=== PATIENT | female | born 1970 | race Caucasian/White ===

== ENCOUNTER 2018-05-26 22:15 | Emergency (ER) | payer SELFPAY ==
[~2018-05-26] VITALS: Ht 154.9 cm; Wt 77.1 kg
[2018-05-26 22:20] VITALS: BP 151/84
--- NOTE | 2018-05-26 23:00 | NUR ---
BIBA TO BED 6
--- NOTE | 2018-05-26 23:00 | NUR ---
47/F BIBA FOR L LOWER BACK PAIN. PT REPORTS SUDDEN ONSET 10/10 L LOWER BACK PAIN, RADIATING TO LLE WITH NUMBNESS/PARESTHESIA, S/P JUMPING IN A [employer] CLASS TODAY. PT REPORTS STARTING TO FEEL LOWER BACK PAIN/DISCOMFORT 3 DAYS AGO WHILE TRAVELING FROM [place]. NO OBVIOUS ABNORMALITY, REDNESS OR SWELLING NOTED ON BACK/LLE. DENIES FEVER/CHILLS, N/V/D, DYSURIA. AOX4, GCS 15, MILD RESTLESS, AMBULATORY WITH SLIGHT LIMP, RR EVEN AND UNLABORED. DENIES MED HX OR RX. OTC PAIN MEDICATION WITH LITTLE RELIEF.
[2018-05-26] MEDS ORDERED: KETOROLAC 60 MG/2 ML VIAL IM ONE (23:40)
[2018-05-27] MEDS ORDERED: MORPHINE SULFATE 4 MG/ML SYR IM ONE (00:30)
--- NOTE | 2018-05-27 00:44 | NUR ---
PT C/O 10/10 L LOWER BACK PAIN DESPITE TORADOL IM. PT LAYING SUPINE, MILDLY RESTLESS AND MOANING IN PAIN. DR DAVIS MADE AWARE. ADMINISTERED MORPHINE IM WITH EDUCATION, PT VERBALIZED UNDERSTANDING, TOLERATED MED WELL.
[2018-05-27] MEDS ORDERED: HYDROmorphone PFS 2 MG/ML SYR IVP ONE (01:45)
[2018-05-27 01:55] LABS: APPEARANCE,URINE CLOUDY (CLEAR); BILIRUBIN,URINE NEGATIVE (NEGATIVE); BLOOD, URINE TRACE-L (NEGATIVE); COLOR,URINE YELLOW (YELLOW); LEUKOCYTE ESTERASE ,URINE NEGATIVE (NEGATIVE); NITRITE, URINE NEGATIVE (NEGATIVE); PH,URINE 8.5 (5.0-9.0); UGLUCOSE NEGATIVE (NEGATIVE)
--- NOTE | 2018-05-27 02:01 | NUR ---
PT C/O PERSISTENT 10/10 L LOWER BACK PAIN DESPITE MORPHINE IM. PT REMAINS MILDLY RESTLESS AND MOANING IN PAIN. DR DAVIS MADE AWARE. ADMINISTERED DILAUDID 1MG IVP WITH EDUCATION, PT VERBALIZED UNDERSTANDING, TOLERATED MED WELL.
[2018-05-27 02:10] LABS: RBC,URINE 0-5 /HPF (0-5); WBC,URINE 0-5 /HPF (0-5)
--- NOTE | 2018-05-27 03:05 | NUR ---
PT SLEEPING IN BED, AROUSABLE TO NAME, REPORTS RELIEF IN L LUMBAR PAIN, 3/10 AT THIS TIME. VSS, RR EVEN AND UNLABORED. ALL NEEDS MET AT THIS TIME.
--- NOTE | 2018-05-27 05:27 | NUR ---
PT LAYING IN BED, RR EVEN AND UNLABORED. VSS. REPORTS L LOWER BACK PAIN INCREASING AGAIN 5/10 AT THIS TIME. REQUESTING FOR XRAY. ER MD MADE AWARE. VERBAL ORDER FOR LUMBAR XR COMPLETE.
--- NOTE | 2018-05-27 05:38 | NUR ---
PT TO XRAY VIA W/C IN STABLE CONDITION
[2018-05-27 06:14] VITALS: BP 167/87
== END 2018-05-27 06:14 | disposition home or self-care (01) ==
LOC: MED 22:15
DX: M54.5 Low back pain (principal); M79.605 Pain in left leg
CPT/HCPCS: 72110; 81001; 81002; 81025; 96372; 96374; 99284; J1170; J1885; J2270; Q0092

== ENCOUNTER 2018-05-28 16:28 | Emergency (ER) | payer SELFPAY ==
[~2018-05-28] VITALS: Ht 154.9 cm; Wt 86.6 kg
[2018-05-28 16:44] VITALS: BP 157/117
--- NOTE | 2018-05-28 17:00 | NUR ---
PT TAKEN TO US.
--- NOTE | 2018-05-28 17:54 | NUR ---
PT W/C ASSISTED TO BED 7.
--- NOTE | 2018-05-28 18:01 | NUR ---
47 Y FEMALE C/O LEFT CALF PAIN SINCE 05/24/18, TRAVELED TO AND FROM [place]; SEEN AT ER ON SATURDAY AND WAS SENT HOME WITH A PAIN PRESCRIPTION, CAN'T RECALL DIAGNOSIS. SAW PMD TODAY AND WAS RX'D ROBAXIN 750MG, GABAPENTIN 100MG, NAPROXEN 500MG. PMD TOLD PT IF PAIN WORSENS GO BACK TO ER. PAIN 10/10 ACHING AND NUMBNESS IN LT LEG AND FOOT. VSS AT THIS TIME. [id number]. BED IS DOWN, LOCKED, BED RAIL X 1, ERMD NOTIFIED. HX NONE
[2018-05-28] MEDS ORDERED: MORPHINE SULFATE 4 MG/ML SYR IM ONE (18:55)
[2018-05-28 19:30] VITALS: BP 154/94
--- NOTE | 2018-05-28 19:30 | NUR ---
Patient discharged with v/s stable. Written and verbal after care instructions given and explained. Patient alert, oriented and verbalized understanding of instructions. Ambulatory with steady gait. All questions addressed prior to discharge. ID band removed. Patient advised to follow up with PMD. Rx of TYLENOL AND MOTRIN given. Patient educated on indication of medication including possible reaction and side effects. Opportunity to ask questions provided and answered.
== END 2018-05-28 19:30 | disposition home or self-care (01) ==
LOC: MED 16:28
DX: S86.812A Strain of other muscle(s) and tendon(s) at lower leg level, left leg, initial encounter (principal); M54.5 Low back pain; X58.XXXA Exposure to other specified factors, initial encounter; Y93.B9 Activity, other involving muscle strengthening exercises; Y92.89 Other specified places as the place of occurrence of the external cause; Y99.8 Other external cause status
CPT/HCPCS: 93971; 96372; 99284; J2270; Q0092

== ENCOUNTER 2021-08-25 08:37 | Day surgery (SDC) | payer OTHER ==
[~2021-08-25] VITALS: Ht 162.6 cm; Wt 81.6 kg
[2021-08-25] MEDS ORDERED: LIDOCAINE 2% 100 MG/5 ML UJET TP ONE (12:10)
[2021-08-25] MEDS ORDERED: fentaNYL citrate 0.05 MG/ML VIAL ONE (12:10)
[2021-08-25] MEDS ORDERED: MIDAZOLAM 5 MG/5 ML VIAL ONE (12:10)
[2021-08-25] MEDS ORDERED: fentaNYL citrate 0.05 MG/ML VIAL IVP ONE (13:00)
== END 2021-08-25 13:45 | disposition home or self-care (01) ==
LOC: MOR 08:37 → MMU 08:38 → MOR 13:45
PROVIDERS: ATTEND Internal Medicine Gastroenterology
DX: Z12.11 Encounter for screening for malignant neoplasm of colon (principal); R93.3 Abnormal findings on diagnostic imaging of other parts of digestive tract; Z20.822 Contact with and (suspected) exposure to COVID-19; Z90.49 Acquired absence of other specified parts of digestive tract; Z98.82 Breast implant status
CPT/HCPCS: 45378; 81025; 87426; J3010; J2250